=== PATIENT | male | born 1955 | race Caucasian/White ===

== ENCOUNTER → 2017-04-29 | Outpatient (CLI) | payer OTHER ==
[2016-04-29 13:17] VITALS: BP 98/61; PULSE 72
[~2017-04-29] MED LIST: CHOL1000 PO; CHOL2000 PO; CHOL20007 PO; FLM4; LISI-792 PO; MULTTAB58 PO; TRAZ50TA35 PO
[2017-04-29 13:07] VITALS: BP 100/63; PULSE 68; TEMP 37; O2SAT 96
--- NOTE | 2017-04-29 14:18 | Radiation Oncology Follow-Up ---
Radiation Oncology Follow-Up Date of Visit Apr 29, 2017. Reason For Visit Annual follow-up Radiation Completion Date Cesium 131 seed implant as monotherapy 06/10/13 Diagnosis (1) Prostate cancer Status: Resolved Onset Date: 01/05/2013 Location: left lobe of the prostate Histology Subtype: adenocarcinoma Permanent Comment: Rising PSA to 9.39 Status post biopsy revealing Cresco grade 3+3 Status post prostate seed implant as monotherapy with cesium 131 completed 06/20 Last Edited By: Leelee Bro on May 01, 2015 15:46 Interim History He's been doing well over this past year. He has an AUA score of 8. Last year he gave an AUA score of 9. He does continue on the tamsulosin once daily. He completed and expanded prostate cancer index composite for clinical practice. He gave a score of 0 of 12 and urinary incontinence symptoms. He gave a score of 2 of 12 urinary irritation symptoms. He gave a score of 0 of 12 bowel symptoms. He was score of 5 of 12 and sexual symptoms. He gave a score of 3 of 12 in hormonal vitality symptoms. His total was 10 of 60. His last PSA was one year ago. He has not followed up with urology. His PSA 04/29/2016 was 0.481. Allergies Coded Allergies: No Known Allergies (Unverified , 06/07/11) Home Medications Scheduled Cholecalciferol (Vitamin D3), 1 TAB PO DAILY Cholecalciferol (Vitamin D3), 1 CAP PO DAILY Cholecalciferol (Vitamin D3), 1 TAB PO DAILY Lisinopril (Zestril), 20 MG PO DAILY Multiple Vitamin (Multivitamin), 1 TABLET PO DAILY Tamsulosin HCl (Tamsulosin HCl), DAILY Scheduled PRN Trazodone Hcl (Trazodone), 100 MG PO HS PRN Review of Systems Gastrointestinal: Symptoms: WNL GI Comments: No fiber supplements; Oral: Symptoms: No Problems Respiratory: Symptoms: WNL Urinary: Symptoms: Frequency Comments: AM frequency which resolves;1 void/night;Taking flomax Skin: Symptoms: No Problems Physical Exam Vital Signs Date Time Temp Pulse Resp B/P (MAP) Pulse Ox O2 Delivery O2 Flow Rate FiO2 04/29/17 13:07 37.0 68 12 100/63 96 Pain: Pain Onset: worse when walking Pain Duration: comes and goes Pain Location: None Patient Pain Scale: 0 - 10 Initial Pain Intensity: 5.0 Additional Comments: Patient fell down steps and hurt foot Fatigue: None General Appearance: no apparent distress Eyes: normal inspection, EOMI ENT: normal ENT inspection, hearing grossly normal Neck: no adenopathy, thyroid normal Respiratory/Chest: lungs clear, no respiratory distress, no accessory muscle use Cardiovascular: regular rate, rhythm, no gallop, no murmur Abdomen: non tender, soft, no organomegaly Anal / Rectum: External and internal hemorrhoids. The rectal masses no rectal bleeding. Prostate consistent with seed implant. Extremities: no pedal edema Neurologic/Psychiatric: no motor/sensory deficits, alert, normal mood/affect Skin: warm/dry Laboratory Studies Test 04/29/17 13:31 Assessment & Plan Plan: PSA was drawn today prior to examination. We discussed his AUA score. It has been stable. I reviewed weaning off of the tamsulosin. He does note on days that he forgets to take the medication he has minimal urinary difficulties or changes. He is going to try taking one pill every other day. He can then decreased to every 3 days. He does have some issues with lightheadedness with standing. This could be related to the medication. That was also reviewed with him. I did ask him to return to our office in 1 year. He may call our office if he has any questions or concerns in the interim. Total Time In Follow-Up I spent 20 minutes speaking to the patient and performing examination. I spent 15 minutes reviewing information and completing this note. Copy To Tamiko Rogers D.O.; Edgard Segura MD
== END | disposition home or self-care (01) ==
LOC: C.ONC 12:43
PROVIDERS: ATTEND Physician Assistant Medical
DX: Z08 Encounter for follow-up examination after completed treatment for malignant neoplasm (principal); Z92.3 Personal history of irradiation; Z85.46 Personal history of malignant neoplasm of prostate